=== PATIENT | female | born 1945 | race Caucasian/White ===

== ENCOUNTER 2018-04-03 21:44 | Observation (INO) | payer MEDICARE, BC ==
[2018-04-03] MEDS ORDERED: Sodium Chloride 0.9% 1,000 ML IV ONE (22:06)
[2018-04-03 22:38] LABS: CHLORIDE,CL 104 mmol/L (98-107); SODIUM,NA 138 mmol/L (136-145)
[2018-04-03] MEDS ORDERED: Ondansetron 4 MG/2 ML SDV IVPUSH ONE (22:44)
--- NOTE | 2018-04-03 23:15 | EDM.PDOC ---
ED HPI GENERAL MEDICAL PROBLEM - General Chief Complaint: General Stated Complaint: lightheadedness/vomiting Time Seen by Provider: 04/03/18 22:15 Source of Information: Reports: Patient History Limitations: Reports: No Limitations - History of Present Illness INITIAL COMMENTS - FREE TEXT/NARRATIVE: Patient comes to ER with complaint of nausea and vomiting. She relates that she had a stent removed this past Wednesday, 5 days ago. Anesthesia was required. She developed nausea and vomiting afterwards. Things felt better on Wednesday and but she had persistent lightheaded feeling that is made worse with standing as well as turning head. On Wednesday she started to have worsening nausea and redeveloped emesis. She has had multiple episodes of vomiting since then. Patient denies fever. No bowel changes. No cough/respiratory changes. No vision changes. No ear pain/runny nose/sore throat. No symptoms suggesting UTI. She was diagnosed with UTI prior to stent removal and received a course of Septra. She says she is sensitive to anesthesia and wonders if her symptoms are related to the recent procedure. Patient has had a somewhat unusual medical course since January when she was diagnosed with the kidney stone. Originally they told her that they should be able to go up and retrieve it. This failed and it was instead retrieved through an incision in her back. A stent was then placed which was to stay for approximately "2-3 weeks, sometimes more" based on her instruction sheet. No one contacted her for follow up plans. She figured that she must have required a longer time with the stent. After the two month salima had passed she contacted Urology. The person there said that she was supposed to have stent taken out in January. Patient says that the Urology department apparently completely forgot about her. They did immediately get her in to the clinic, but by then the stent had appeared to be frozen/calcified in place. She was told that she would have to be scheduled for a more advanced procedure under anesthesia to get the stent out. She was then told she would need bloodwork and a UA the week prior to stent removal. This she had done locally at the [facility] the Wednesday the week before the procedure was scheduled. She said that again she was not contacted back by the Urology department regarding what to do next. On Wednesday of that week she called them again and asked what was going on, as she had gone onto her online chart and noticed that there were elevated numbers of RBC and WBC in the specimen. On that Wednesday they started her on the . They following Wednesday is when they removed the stent. Patient makes it clear that she is quite tired of all of the recent issues and her patience is becoming shortened. She called the nurse line nayely regarding the nausea/vomiting and lightheadedness and was told to go the the ER for hydration. Dizziness feels better when she lays down. - Related Data Allergies Allergy/AdvReac Type Severity Reaction Status Date / Time amoxicillin trihydrate Allergy Unknown Nausea and Verified 04/03/18 22:07 [From Augmentin] diarrhea potassium clavulanate Allergy Unknown nausea and Verified 04/03/18 22:07 [From Augmentin] diarrhea Home Meds: Home Meds Apixaban [Eliquis] 5 mg PO BID 06/19/14 [History] Irbesartan/Hydrochlorothiazide [Avalide 150-12.5 MG] 1 tab PO DAILY 06/19/14 [ History] Naproxen Sodium [Aleve] 220 mg PO BID PRN 06/19/14 [History] atorvaSTATin [Lipitor] 10 mg PO BEDTIME 06/19/14 [History] Sotalol HCl [Betapace] 120 mg PO BID 04/03/18 [History] Past Medical History Cardiovascular History: Reports: Afib (had ablation procedure several years ago that successfully got her back into sinus rhythm. Cardiology still keeps her on Sotalol and Eliquis.), High Cholesterol, Hypertension Genitourinary History: Reports: Pyelonephritis, Other (See Below) Other Genitourinary History: with surgical stents and recent stent removal 5 days ago. Musculoskeletal History: Reports: Osteoarthritis (has had joint replacements.) Social & Family History - Family History Cardiac: Reports: CAD Neurological: Reports: CVA - Tobacco Use Smoking Status *Q: Never Smoker - Alcohol Use Alcohol Use History: No - Recreational Drug Use Recreational Drug Use: No Drug Use in Last 12 Months: No ED ROS GENERAL - Review of Systems Review Of Systems: See Below Constitutional: Reports: Decreased Appetite. Denies: Fever, Chills, Malaise, Weakness, Night Sweats, Diaphoresis HEENT: Reports: Vertigo. Denies: Ear Discharge, Ear Pain, Eye Pain, Rhinitis, Vision Change Respiratory: Reports: No Symptoms. Denies: Shortness of Breath, Wheezing, Pleuritic Chest Pain, Cough, Sputum, Hemoptysis Cardiovascular: Reports: Lightheadedness. Denies: Chest Pain, Palpitations, Syncope GI/Abdominal: Reports: Decreased Appetite, Nausea, Vomiting. Denies: Abdominal Pain, Black Stool, Bloody Stool, Constipation, Diarrhea, Difficulty Swallowing : Reports: No Symptoms. Denies: Dysuria, Flank Pain, Frequency, Hematuria Musculoskeletal: Reports: No Symptoms Skin: Reports: No Symptoms Neurological: Reports: Dizziness. Denies: Confusion, Headache, Numbness, Paresthesia, Syncope, Weakness, Change in Speech, Gait Disturbance Psychiatric: Reports: No Symptoms Hematologic/Lymphatic: Reports: No Symptoms ED EXAM, GENERAL - Physical Exam Exam: See Below Exam Limited By: No Limitations General Appearance: Alert, WD/WN, Other (intermittent nausea/emesis) Eye Exam: Bilateral Eye: EOMI, PERRL, Other (No nystagmus observed with head rotation) Ears: Normal External Exam, Normal Canal, Hearing Grossly Normal, Normal TMs Nose: Normal Inspection Throat/Mouth: Normal Inspection, Normal Lips, Normal Voice, No Airway Compromise Head: Atraumatic, Normocephalic Neck: Normal Inspection, Supple, Non-Tender, Full Range of Motion. No: Lymphadenopathy (L), Lymphadenopathy (R) Respiratory/Chest: No Respiratory Distress, Lungs Clear, Normal Breath Sounds, No Accessory Muscle Use, Chest Non-Tender Cardiovascular: Normal Peripheral Pulses, Regular Rate, Rhythm, No Edema, No Murmur Peripheral Pulses: 2+: Radial (L), Radial (R), Dorsalis Pedis (L), Dorsalis Pedis (R) GI/Abdominal: Normal Bowel Sounds, Soft, Non-Tender, No Distention (Female) Exam: Deferred Rectal (Female) Exam: Deferred Back Exam: No: CVA Tenderness (L), CVA Tenderness (R) Extremities: Normal Range of Motion, Non-Tender, No Pedal Edema, Slow Capillary Refill (slightly delayed) Neurological: Alert, Oriented, CN II-XII Intact, Normal Cognition, Normal Gait, No Motor/Sensory Deficits Psychiatric: Normal Affect, Normal Mood Skin Exam: Warm, Dry, Intact, Normal Color Course - Vital Signs Last Recorded V/S: Last Vital Signs Temp 36.8 C 04/03/18 21:46 Pulse 58 L 04/03/18 22:29 Resp 16 04/03/18 22:29 BP 159/73 H 04/03/18 22:29 Pulse Ox 95 04/03/18 22:29 - Orders/Labs/Meds Orders: Active Orders 24 hr Category Date Time Status Peripheral IV Care [RC] . DIRECTED Care 04/03/18 22:06 Active Sodium Chloride 0.9% [Normal Saline] 1,000 ml Med 04/03/18 22:06 Active IV .BOLUS Peripheral IV Insertion Adult [OM.PC] Routine Oth 04/03/18 22:06 Ordered Medication Orders Sodium Chloride (Normal Saline) 1,000 mls @ 999 mls/hr IV .BOLUS ONE Stop: 04/03/18 23:06 Last Admin: 04/03/18 22:20 Dose: 999 mls/hr Labs: Laboratory Tests 04/03/18 04/03/18 Range/Units 22:15 22:15 WBC 9.3 (4.0-10.2) K/uL RBC 4.29 (3.77-5.09) M/uL Hgb 12.9 (11.7-15.5) g/dL Hct 38.1 (34.0-46.0) % MCV 88.8 (84.0-98.0) fL MCH 30.1 (28.2-33.3) pg MCHC 33.9 (31.7-36.0) g/dL RDW 13.0 (11.2-14.1) % Plt Count 216 (150-350) K/uL Neut % (Auto) 79.2 (45.0-80.0) % Lymph % (Auto) 12.3 (10.0-50.0) % [place] % (Auto) 6.8 (2.0-14.0) % Eos % (Auto) 1.5 (0.0-5.0) % Baso % (Auto) 0.2 (0.0-2.0) % Neut # (Auto) 7.38 H (1.40-7.00) K/uL Lymph # (Auto) 1.15 (0.50-3.50) K/uL [place] # (Auto) 0.63 (0.00-1.00) K/uL Eos # (Auto) 0.14 (0.00-0.50) K/uL Baso # (Auto) 0.02 (0.00-0.20) K/uL Sodium 138 (136-145) mmol/L Potassium 3.9 (3.5-5.1) mmol/L Chloride 104 (98-107) mmol/L Carbon Dioxide 26.3 (21.0-32.0) mmol/L BUN 22 H (7-18) mg/dL Creatinine 0.82 (0.51-1.17) mg/dL Est Cr Clr Drug Dosing 61.19 mL/min Estimated GFR (MDRD) > 60 mL/min Glucose 127 H (74-106) mg/dL Calcium 9.3 (8.5-10.1) mg/dL Total Bilirubin 0.7 (0.2-1.0) mg/dL AST 21 (15-37) U/L ALT 27 (12-78) U/L Alkaline Phosphatase 98 (46-116) IU/L Total Protein 7.8 (6.4-8.2) g/dL Albumin 4.1 (3.4-5.0) g/dL Meds: Medications Generic Name Dose Route Start Last Admin Trade Name Freq PRN Reason Stop Dose Admin Sodium Chloride 1,000 mls @ 999 mls/hr 04/03/18 22:06 04/03/18 22:20 Normal Saline IV 04/03/18 23:06 999 mls/hr .BOLUS ONE Administration Discontinued Medications Generic Name Dose Route Start Last Admin Trade Name Freq PRN Reason Stop Dose Admin Ondansetron HCl 4 mg 04/03/18 22:44 04/03/18 22:47 Zofran IVPUSH 04/03/18 22:45 4 mg ONETIME ONE Administration - Re-Assessments/Exams Free Text/Narrative Re-Assessment/Exam: 04/03/18 23:30 CBC/Chem overall unremarkable. Patient has not yet been able to void and give us a urine specimen. Given patient's past history with nausea/emesis related to anesthesia, and the ability of anesthesia to hang around the patient's system for awhile after procedures, it is possible that this is linked with the medication. Symptoms did initially appear immediately after the stent removal procedure. However possible UTI must be also ruled out, particularly since she had recent infection. Viral etiology appears less likely. Patient has had no fevers, no headaches, no chest pain/sob. 1st degree block noted on cafeteria monitor. Plan at this time is to admit her to observation and continue fluids. Will try to get nausea under control. BP elevated in ER. Patient did take morning medications. Suspect due to discomfort and dry heaves. Departure - Departure Time of Disposition: 23:43 Disposition: Refer to Observation Condition: Good Clinical Impression: Dehydration Nausea & vomiting Qualifiers: Vomiting type: unspecified Vomiting Intractability: intractable Qualified Code( s): R11.2 - Nausea with vomiting, unspecified - Discharge Information Referrals: Maye Goncalves PA-C [Primary Care Provider] - - Problem List & Annotations (1) Nausea & vomiting SNOMED Code(s): 43548110 Code(s): R11.2 - NAUSEA WITH VOMITING, UNSPECIFIED Status: Acute Priority : High Onset Date: 03/22/18 Annotation/Comment:: Nausea/emesis that started 5 days ago after stent removal under anesthesia. Accompanied by dizziness and vertigo. No improvement after Zofran. Admitted for IV fluids and antiemetics. UA ordered. Qualifiers: Vomiting type: unspecified Vomiting Intractability: intractable Qualified Code(s): R11.2 - Nausea with vomiting, unspecified (2) Dehydration SNOMED Code(s): 16797848 Code(s): E86.0 - DEHYDRATION Status: Acute Priority: High Onset Date: ~ 03/26/18 Annotation/Comment:: as above (3) Dizziness, nonspecific SNOMED Code(s): 332624194, 288642715 Code(s): R42 - DIZZINESS AND GIDDINESS Status: Acute Priority: Medium Onset Date: 03/29/18 Annotation/Comment:: Present since patient received anesthesia. Worse with head rotation/movement. (4) Hypertension SNOMED Code(s): 48812645 Code(s): I10 - ESSENTIAL (PRIMARY) HYPERTENSION Status: Chronic Priority : Medium Annotation/Comment:: Will continue to monitor for trends. Qualifiers: Hypertension type: essential hypertension Qualified Code(s): I10 - Essential (primary) hypertension (5) Hyperlipidemia SNOMED Code(s): 49181134 Code(s): E78.5 - HYPERLIPIDEMIA, UNSPECIFIED Status: Chronic Priority: Low (6) History of radiofrequency ablation procedure for cardiac arrhythmia SNOMED Code(s): 251381744 Code(s): Z98.890 - OTHER SPECIFIED POSTPROCEDURAL STATES Status: Chronic Priority: Low Annotation/Comment:: History of Afib, converted to sinus after procedure. - Problem List Review Problem List Initiated/Reviewed/Updated: Yes - My Orders Last 24 Hours: My Active Orders 04/03/18 22:06 Peripheral IV Care [RC] . DIRECTED Sodium Chloride 0.9% [Normal Saline] 1,000 ml IV .BOLUS Peripheral IV Insertion Adult [OM.PC] Routine - Assessment/Plan Admission H&P: Please use this note as an admission H&P Last 24 Hours: My Active Orders 04/03/18 22:06 Peripheral IV Care [RC] . DIRECTED Sodium Chloride 0.9% [Normal Saline] 1,000 ml IV .BOLUS Peripheral IV Insertion Adult [OM.PC] Routine Assessment:: Nausea, emesis, dizziness s/p stent removal. Specific etiology unclear at this time. UA request pending to r/o UTI. Plan at this time is IV fluids and antiemetics.
[2018-04-03] MEDS ORDERED: Promethazine 25 MG/ML SDV IM ONE (23:51)
[2018-04-04] MEDS ORDERED: Sodium Chloride 0.9% 1,000 ML IV ONE (00:14)
[2018-04-04] MEDS ORDERED: Promethazine 25 MG/ML SDV IM PRN (00:17)
[2018-04-04] MEDS ORDERED: Prochlorperazine 10 MG/2 ML SDV IVPUSH PRN (00:19)
[2018-04-04] MEDS ORDERED: Meclizine 25 MG Tab PO ONE (00:20)
[2018-04-04] MEDS: Lactated Ringers 1,000 ML IV SCH ×3 (01:13→18:58)
[2018-04-04] MEDS ORDERED: Meclizine 25 MG Tab ONE (05:22)
[2018-04-04] MEDS: Apixaban 5 MG Tab PO SCH ×2 (07:44→17:12)
--- NOTE | 2018-04-04 08:43 | PCM.PN ---
- General Info Date of Service: 04/04/18 Admission Dx/Problem (Free Text): 1. Nausea/emesis 2. Dehydration with secondary dizziness Functional Status: Reports: Pain Controlled, Tolerating Diet, Ambulating, Urinating. Denies: New Symptoms, Incentive Spirometry Pain Score: 0 - Review of Systems General: Reports: Other (Mild persistent occasional nausea and dizziness). Denies: Fever, Weakness, Fatigue, Malaise, Chills, Night Sweats, Appetite HEENT: Reports: Glasses. Denies: Dysphasia, Ear Pain, Eye Pain, Headaches, Post Nasal Drip, Sinus Congestion, Sore Throat, Rhinitis, Visual Changes Pulmonary: Reports: No Symptoms. Denies: Shortness of Breath, Pleuritic Chest Pain, Cough, Sputum, Wheezing Cardiovascular: Reports: Lightheadedness. Denies: Chest Pain, Palpitations, Dyspnea on Exertion, Orthopnea, Edema Gastrointestinal: Reports: No Symptoms, Abdominal Pain, Nausea, Other (Normal bowel movement yesterday by patient history). Denies: Constipation, Decreased Appetite, Diarrhea, Difficulty Swallowing, Flatus, Hematochezia, Melena, Vomiting Genitourinary: Reports: No Symptoms. Denies: Dysuria, Frequency, Burning, Pain , Urgency, Incontinence, Hematuria, Retention, Flank Pain Musculoskeletal: Reports: No Symptoms. Denies: Neck Pain, Shoulder Pain, Arm Pain, Back Pain, Leg Pain Skin: Reports: No Symptoms. Denies: Pallor, Diaphoresis, Bruising, Pruritis, Rash Neurological: Reports: Dizziness. Denies: Headache, Numbness, Paresthesia, Pre- Existing Deficit, Seizure, Syncope, Tingling, Tremors, Trouble Speaking, Difficulty Walking, Weakness Psychiatric: Reports: No Symptoms. Denies: Confusion, Depression, Anxiety, Agitation, Hallucinations - Patient Data Vitals - Most Recent: Last Vital Signs Temp 36.6 C 04/04/18 07:45 Pulse 79 04/04/18 07:45 Resp 18 04/04/18 07:45 BP 141/73 H 04/04/18 07:45 Pulse Ox 99 04/04/18 07:45 Vital Signs - 24 hr 04/03/18 04/03/18 04/04/18 21:46 22:29 00:09 Temperature [ 36.8 C 36.6 C Temporal] Pulse, 63 58 L 62 Peripheral [ Pulse Oximetry] Respiratory 16 16 16 Rate Blood Pressure [Left Upper Arm ] Blood Pressure 191/88 H 159/73 H 156/71 H [Right Upper Arm] O2 Sat by Pulse 99 95 99 Oximetry 04/04/18 04/04/18 05:30 07:45 Temperature [ 36.6 C 36.6 C Temporal] Pulse, 67 79 Peripheral [ Pulse Oximetry] Respiratory 16 18 Rate Blood Pressure 146/76 H 141/73 H [Left Upper Arm ] Blood Pressure [Right Upper Arm] O2 Sat by Pulse 98 99 Oximetry Weight - Most Recent: 91.354 kg I&O - Last 24 Hours: Intake & Output 04/03/18 04/04/18 04/04/18 22:59 06:59 14:59 Intake Total 2650 350 Output Total 300 Balance 2350 350 Imaging Impressions - Last 24 Hours: None Lab Results Last 24 Hours: Laboratory Results - last 24 hr 04/03/18 04/03/18 04/04/18 Range/Units 22:15 22:15 00:05 WBC 9.3 (4.0-10.2) K/uL RBC 4.29 (3.77-5.09) M/uL Hgb 12.9 (11.7-15.5) g/dL Hct 38.1 (34.0-46.0) % MCV 88.8 (84.0-98.0) fL MCH 30.1 (28.2-33.3) pg MCHC 33.9 (31.7-36.0) g/dL RDW 13.0 (11.2-14.1) % Plt Count 216 (150-350) K/uL Neut % (Auto) 79.2 (45.0-80.0) % Lymph % (Auto) 12.3 (10.0-50.0) % [place] % (Auto) 6.8 (2.0-14.0) % Eos % (Auto) 1.5 (0.0-5.0) % Baso % (Auto) 0.2 (0.0-2.0) % Neut # (Auto) 7.38 H (1.40-7.00) K/uL Lymph # (Auto) 1.15 (0.50-3.50) K/uL Morris # (Auto) 0.63 (0.00-1.00) K/uL Eos # (Auto) 0.14 (0.00-0.50) K/uL Baso # (Auto) 0.02 (0.00-0.20) K/uL Sodium 138 (136-145) mmol/L Potassium 3.9 (3.5-5.1) mmol/L Chloride 104 (98-107) mmol/L Carbon Dioxide 26.3 (21.0-32.0) mmol/L BUN 22 H (7-18) mg/dL Creatinine 0.82 (0.51-1.17) mg/dL Est Cr Clr Drug Dosing 61.19 mL/min Estimated GFR (MDRD) > 60 mL/min Glucose 127 H (74-106) mg/dL Calcium 9.3 (8.5-10.1) mg/dL Total Bilirubin 0.7 (0.2-1.0) mg/dL AST 21 (15-37) U/L ALT 27 (12-78) U/L Alkaline Phosphatase 98 (46-116) IU/L Total Protein 7.8 (6.4-8.2) g/dL Albumin 4.1 (3.4-5.0) g/dL Urine Color Yellow Urine Appearance Clear Urine pH 6.0 (5.0-9.0) Ur Specific Newborn 1.020 (1.005-1.030) Urine Protein Negative (NEGATIVE) mg/dL Urine Glucose (UA) Negative (NEGATIVE) mg/dL Urine Ketones 15 H (NEGATIVE) mg/dL Urine Occult Blood Negative (NEGATIVE) Urine Nitrite Negative (NEGATIVE) Urine Bilirubin Negative (NEGATIVE) Urine Urobilinogen 0.2 (0.2-1.0) E.U./dL Ur Leukocyte Esterase Negative (NEGATIVE) Charles Results Last 24 Hours: None Med Orders - Current: Current Medications Apixaban (Eliquis) 5 mg PO BID [facility] Last Admin: 04/04/18 07:44 Dose: 5 mg Atorvastatin Calcium (Lipitor) 10 mg PO BEDTIME [facility] Lactated Ringer's (Ringers, Lactated) 1,000 mls @ 125 mls/hr IV ASDIRECTED [facility] Last Admin: 04/04/18 01:13 Dose: 125 mls/hr Non-Formulary Medication (Irbesartan/Hydrochlorothiazide [Avalide 150-12.5 Mg]) 1 tab PO DAILY [facility] Non-Formulary Medication (Sotalol Hcl [Betapace]) 120 mg PO BID [facility] Prochlorperazine Edisylate (Compazine) 5 mg IVPUSH ONETIME PRN PRN Reason: Nausea Promethazine HCl (Phenergan) 25 mg IM Q6H PRN PRN Reason: Nausea Discontinued Medications Sodium Chloride (Normal Saline) 1,000 mls @ 999 mls/hr IV .BOLUS ONE Stop: 04/03/18 23:06 Last Admin: 04/03/18 22:20 Dose: 999 mls/hr Sodium Chloride (Normal Saline) 1,000 mls @ 999 mls/hr IV .BOLUS ONE Stop: 04/04/18 01:14 Last Admin: 04/04/18 00:15 Dose: 999 mls/hr Meclizine HCl (Antivert) 25 mg PO ONETIME ONE Stop: 04/04/18 00:21 Last Admin: 04/04/18 05:30 Dose: 25 mg Meclizine HCl (Antivert) Confirm Administered Dose 25 mg .ROUTE .STK-MED ONE Stop: 04/04/18 05:23 Last Admin: 04/04/18 05:31 Dose: Not Given Ondansetron HCl (Zofran) 4 mg IVPUSH ONETIME ONE Stop: 04/03/18 22:45 Last Admin: 04/03/18 22:47 Dose: 4 mg Promethazine HCl (Phenergan) 25 mg IM ONETIME ONE Stop: 04/03/18 23:52 Last Admin: 04/04/18 00:12 Dose: 25 mg - Exam Quality Assessment: DVT Prophylaxis. No: Supplemental Oxygen, Central Line/PICC , Urine Catheter, Skin Breakdown, Restraints General: Alert, Oriented, Cooperative, No Acute Distress HEENT: Pupils Equal, Pupils Reactive, EOMI, Mucous Membr. Moist/[place] Neck: Supple, Trachea Midline, No JVD, No Thyromegaly. No: Lymphadenopathy Lungs: Clear to Auscultation, Normal Respiratory Effort. No: Rub Cardiovascular: Regular Rate, Regular Rhythm, No Murmurs. No: Gallops, Rubs GI/Abdominal Exam: Normal Bowel Sounds, Soft, Non-Tender, No Organomegaly, No Distention, No Abnormal Bruit, No Mass, Other (Obese). No: Guarding (Female) Exam: Deferred Back Exam: Normal Inspection, Full Range of Motion. No: CVA Tenderness (L), CVA Tenderness (R), Muscle Spasm Extremities: Normal Inspection, Normal Range of Motion, Non-Tender, No Pedal Edema, Normal Capillary Refill. No: Vivien's Sign Peripheral Pulses: 2+: Radial (L), Radial (R), Dorsalis Pedis (L), Dorsalis Pedis (R) Skin: Warm, Dry, Intact. No: Ecchymosis Neurological: No New Focal Deficit, Other (No clinical orthostasis) Psy/Mental Status: Alert, Normal Affect, Normal Mood. No: Agitated, Hallucinations, Withdrawal Symptoms - Problem List & Annotations (1) Nausea & vomiting SNOMED Code(s): 65443559 Code(s): R11.2 - NAUSEA WITH VOMITING, UNSPECIFIED Status: Acute Priority : High Current Visit: Yes Onset Date: 03/22/18 Qualifiers: Vomiting type: unspecified Vomiting Intractability: intractable Qualified Code(s): R11.2 - Nausea with vomiting, unspecified Annotation/Comment:: Persistent mild nausea requiring medications in the hospital. No emesis since admission. Normal bowel movement yesterday by her history. Patient is tolerating clear liquid diet with slow advancement as tolerated per her request. Nausea/emesis started 5 days ago after stent removal under anesthesia. Accompanied by dizziness and vertigo. No improvement after Zofran initially in the emergency room. Patient was admitted for IV fluids and further antiemetics through the emergency room by [facility] physician. UA is normal. Repeat blood work in the a.m. (2) Dehydration SNOMED Code(s): 25543209 Code(s): E86.0 - DEHYDRATION Status: Acute Priority: High Current Visit : Yes Onset Date: ~03/26/18 Annotation/Comment:: as above. Dehydration since fully resolved this morning, although continue IV fluids secondary to persistent dizziness. Advance diet as tolerated. (3) Atrial fibrillation SNOMED Code(s): 54920074 Code(s): I48.91 - UNSPECIFIED ATRIAL FIBRILLATION Status: Chronic Priority: Medium Current Visit: Yes Qualifiers: Atrial fibrillation type: chronic Qualified Code(s): I48.2 - Chronic atrial fibrillation Annotation/Comment:: No successful previous cardiac ablation with current Eliquis and sotalol therapy. No recent chest pain or anginal complaints. (4) Dizziness, nonspecific SNOMED Code(s): 144079947, 549316637 Code(s): R42 - DIZZINESS AND GIDDINESS Status: Acute Priority: Medium Current Visit: Yes Onset Date: 03/29/18 Annotation/Comment:: Persistent nonspecific dizziness with possible vertigo component. No nystagmus present. Symptoms somewhat improved with resolution of her dehydration with IV fluids. Continue IV fluids for now with diet to be advanced as above. (5) Hyperlipidemia SNOMED Code(s): 51082727 Code(s): E78.5 - HYPERLIPIDEMIA, UNSPECIFIED Status: Chronic Priority: Medium Current Visit: Yes Qualifiers: Hyperlipidemia type: unspecified Qualified Code(s): E78.5 - Hyperlipidemia , unspecified Annotation/Comment:: Currently under therapy. Continue weight loss and exercise in moderation advisable (6) Hypertension SNOMED Code(s): 37836668 Code(s): I10 - ESSENTIAL (PRIMARY) HYPERTENSION Status: Chronic Priority : Medium Current Visit: Yes Qualifiers: Hypertension type: essential hypertension Qualified Code(s): I10 - Essential (primary) hypertension Annotation/Comment:: Blood pressure is much improved since admission, although still occasionally mildly elevated. Continue to observe closely - Problem List Review Problem List Initiated/Reviewed/Updated: Yes - Assessment Assessment:: As above - Plan Plan:: As above. Extensive precautions were given to the patient, who is in agreement with the treatment plan. Likely discharge to home tomorrow.
[2018-04-04] MEDS ORDERED: atorvaSTATin 10 MG Tab PO SCH (20:00)
[2018-04-05] MEDS: Lactated Ringers 1,000 ML IV SCH (05:00)
[2018-04-05 07:34] LABS: CHLORIDE,CL 106 mmol/L (98-107); SODIUM,NA 141 mmol/L (136-145)
[2018-04-05] MEDS: Apixaban 5 MG Tab PO SCH (07:59)
--- NOTE | 2018-04-05 08:52 | PCM.DCSUM1 ---
Discharge Summary - Hospital Course HPI Initial Comments: See emergency room note/admission H&P Brief History: See emergency room note/admission H&P - Discharge Data Discharge Date: 04/05/18 Discharge Disposition: Home, Self-Care 01 Condition: Good - Discharge Diagnosis/Problem(s) (1) Nausea & vomiting SNOMED Code(s): 79292625 ICD Code: R11.2 - NAUSEA WITH VOMITING, UNSPECIFIED Status: Acute Priority: High Current Visit: Yes Onset Date: 03/22/18 Problem Details: Completely resolved symptoms at this time with no abdominal pain, nausea, etc. with the patient tolerating her advance diet well during the day yesterday. He did not have a bowel movement yesterday. Persistent mild nausea yesterday requiring medications in the hospital. No emesis since admission. Normal bowel movement 2 days ago by her history with no significant constipation. Nausea/ emesis started 5 days ago after stent removal under anesthesia with additional history of dizziness and vertigo, which is resolved at this time.. No improvement after Zofran initially in the emergency room. Patient was admitted for IV fluids and further antiemetics through the emergency room by [facility] physician. UA is normal with no colic, hematuria, or other gross hematuria. Qualifiers: Vomiting type: unspecified Vomiting Intractability: intractable Qualified Code(s): R11.2 - Nausea with vomiting, unspecified (2) Dehydration SNOMED Code(s): 20985630 ICD Code: E86.0 - DEHYDRATION Status: Acute Priority: High Current Visit: Yes Onset Date: ~03/26/18 Problem Details: as above. Dehydration is fully resolved this morning, with continuation of IV fluids throughout this hospitalization secondary to persistent dizziness. (3) Atrial fibrillation SNOMED Code(s): 96255309 ICD Code: I48.91 - UNSPECIFIED ATRIAL FIBRILLATION Status: Chronic Priority: Medium Current Visit: Yes Problem Details: Note successful previous cardiac ablation with current Eliquis and sotalol therapy. No recent chest pain or anginal complaints. INR and PTT conducted today with results as above. Qualifiers: Atrial fibrillation type: chronic Qualified Code(s): I48.2 - Chronic atrial fibrillation (4) Dizziness, nonspecific SNOMED Code(s): 821931347, [id number] ICD Code: R42 - DIZZINESS AND GIDDINESS Status: Acute Priority: Medium Current Visit: Yes Onset Date: 03/29/18 Problem Details: As above. No nystagmus or vertigo present today. (5) Hyperlipidemia SNOMED Code(s): 20097347 ICD Code: E78.5 - HYPERLIPIDEMIA, UNSPECIFIED Status: Chronic Priority: Medium Current Visit: Yes Problem Details: Currently under therapy. Continue weight loss and exercise in moderation advisable Qualifiers: Hyperlipidemia type: unspecified Qualified Code(s): E78.5 - Hyperlipidemia , unspecified (6) Hypertension SNOMED Code(s): 13332116 ICD Code: I10 - ESSENTIAL (PRIMARY) HYPERTENSION Status: Chronic Priority : Medium Current Visit: Yes Problem Details: Blood pressure is somewhat elevated this morning, however improved at time of discharge and relatively stable during this hospitalization. Continue to observe closely Qualifiers: Hypertension type: essential hypertension Qualified Code(s): I10 - Essential (primary) hypertension (7) Anemia SNOMED Code(s): 858877191 ICD Code: D64.9 - ANEMIA, UNSPECIFIED Status: Acute Priority: Medium Current Visit: Yes Onset Date: 04/05/18 Problem Details: Somewhat progressive anemia during this hospitalization possibly secondary to rehydration effect. By patient history her colonoscopy is due shortly. No evidence of acute GI bleed. Note current Eliquis therapy and previous Aleve therapy prior to admission. Patient was reminded to strictly avoid NSAIDs while on Eliquis as per discharge instructions with Aleve to be changed to when necessary Tylenol. Continue to observe closely by her regular provider as per discharge instructions with consideration of possible iron studies, EGD, colonoscopy, etc. depending on her clinical course. Qualifiers: Anemia type: unspecified type Qualified Code(s): D64.9 - Anemia, unspecified (8) Hypoalbuminemia SNOMED Code(s): 001045352 ICD Code: E88.09 - OTH DISORDERS OF PLASMA-PROTEIN METABOLISM, NEC Status: Acute Priority: Medium Current Visit: Yes Onset Date: 04/05/18 Problem Details: Continue to observe closely by her regular provider. Initiate high- protein Glucerna supplements twice a day as snacks. (9) Urolithiasis SNOMED Code(s): 07046184, 766332609 ICD Code: N20.9 - URINARY CALCULUS, UNSPECIFIED Status: Chronic Priority : Medium Current Visit: Yes Problem Details: Note recent stent removal as per admission history and physical. No current colic, UTI symptoms, etc. with negative UA during this hospitalization. No true allergic reaction to anesthesia , however possible GI intolerance. She will inform her regular providers concerning this hospitalization and that reaction, although this may be of viral etiology. Qualifiers: Urinary calculus location: ureter Qualified Code(s): N20.1 - Calculus of ureter (10) Leukopenia SNOMED Code(s): 05208880, 698523504 ICD Code: D72.819 - DECREASED WHITE BLOOD CELL COUNT, UNSPECIFIED Status: Acute Priority: Medium Current Visit: Yes Onset Date: 04/05/18 Problem Details: Newly diagnosed but nonsymptomatic. Possibly secondary to viral GE. CBC to be repeated at follow up. Qualifiers: Leukopenia type: neutropenia - Patient Summary/Data Operative Procedure(s) Performed: None Complications: None Consults: None Labs Pending at D/C: None Recommended Follow-up Testing/Procedures: As per discharge instructions Planned Operative Procedure(s) after DC: As per discharge instructions Hospital Course: Patient was admitted to observation status for IV hydration and control of her refractory nausea/emesis. Completely resolved symptoms at time of discharge with overall good results with medical therapy during this hospitalization. No evidence of UTI symptoms, colic, etc. as above. - Patient Instructions Diet: Heart Healthy Diet Diet, Other: Diverticulosis, high protein Activity: As Tolerated Driving: May Drive Today Showering/Bathing: May Shower Notify Provider of: Fever, Increased Pain, Nausea and/or Vomiting Other/Special Instructions: 1. Follow up with your regular provider in one week for reevaluation and recommended repeat CBC and basic metabolic panel. 2. Discuss this hospitalization and possible GI intolerance to anesthesia with your regular provider at that time. 3. Discuss with your regular provider possible further GI workup, including EGD, colonoscopy, iron studies, etc., if significant anemia persists at follow-up. 4. Avoidance of all ibuprofen, Aleve , and other NSAIDs as discussed secondary to your current Eliquis therapy. 5. High-protein Glucerna supplements twice a day as snacks with consideration of repeat comprehensive metabolic panel in one month. 6. Immediately after this visit verify that your cellular telephone's voicemail has been activated and is empty. Also verify that your home telephone's answering machine is operating properly and has space to receive messages. Note that it is sometimes necessary for us to be able to contact you at a later date to discuss your medical care. - Discharge Plan Prescriptions/Med Rec: Acetaminophen [Tylenol] 325 mg PO Q4HR PRN #100 tablet PRN Reason: Pain/Fever Home Medications: Home Meds Apixaban [Eliquis] 5 mg PO BID 06/19/14 [History] Irbesartan/Hydrochlorothiazide [Avalide 150-12.5 MG] 1 tab PO DAILY 06/19/14 [ History] atorvaSTATin [Lipitor] 10 mg PO BEDTIME 06/19/14 [History] Sotalol HCl [Betapace] 120 mg PO BID 04/03/18 [History] Acetaminophen [Tylenol] 325 mg PO Q4HR PRN #100 tablet 04/05/18 [Rx] Patient Handouts: Ondansetron injection, Promethazine injection, Nausea and Vomiting, Adult, [id number], Dehydration, Adult, [id number] Forms: ED Department Discharge Referrals: Maye Goncalves PA-C [Primary Care Provider] - - Discharge Summary/Plan Comment DC Time >30 min.: Yes (Coordination of care ) Discharge Summary/Plan Comment: As above. Extensive precautions were given to the patient, who is in agreement with the treatment plan. See Patient Instructions for further treatment and plan. - General Info Date of Service: 04/05/18 Admission Dx/Problem (Free Text: 1. Nausea/emesis 2. Dehydration with secondary dizziness Functional Status: Reports: Pain Controlled, Tolerating Diet, Ambulating, Urinating, New Symptoms. Denies: Incentive Spirometry Numeric/FACES Score: 0 - Review of Systems General: Reports: No Symptoms. Denies: Fever, Weakness, Fatigue, Malaise, Chills, Night Sweats, Appetite (Appetite good) HEENT: Reports: Glasses. Denies: Dysphasia, Ear Pain, Eye Pain, Headaches, Post Nasal Drip, Sinus Congestion, Sore Throat, Rhinitis, Visual Changes Pulmonary: Reports: No Symptoms. Denies: Shortness of Breath, Pleuritic Chest Pain, Cough, Sputum, Wheezing Cardiovascular: Reports: No Symptoms. Denies: Chest Pain, Palpitations, Dyspnea on Exertion, Orthopnea, PND, Edema, Lightheadedness Gastrointestinal: Reports: No Symptoms. Denies: Abdominal Pain, Constipation, Decreased Appetite, Diarrhea, Difficulty Swallowing, Flatus, Hematochezia, Melena, Nausea, Vomiting Genitourinary: Reports: No Symptoms, Incontinence. Denies: Dysuria, Frequency, Burning, Pain, Urgency, Hematuria, Retention, Flank Pain Musculoskeletal: Reports: No Symptoms. Denies: Neck Pain, Shoulder Pain, Arm Pain, Back Pain, Leg Pain Skin: Reports: No Symptoms. Denies: Jaundice, Pallor, Diaphoresis, Dryness, Bruising, Rash Neurological: Reports: No Symptoms. Denies: Confusion, Dizziness, Headache, Numbness, Paresthesia, Syncope, Tingling, Weakness Psychiatric: Reports: No Symptoms. Denies: Confusion, Depression, Agitation, Hallucinations - Patient Data Vitals - Most Recent: Last Vital Signs Temp 36.7 C 04/05/18 07:13 Pulse 62 04/05/18 07:13 Resp 16 04/05/18 07:13 BP 161/86 H 04/05/18 07:13 Pulse Ox 98 04/05/18 07:13 Vital Signs - 24 hr 04/04/18 04/04/18 04/04/18 12:00 18:00 23:41 Temperature [ 35.8 C 36.8 C 36.4 C Temporal] Pulse, 67 65 58 L Peripheral [ Pulse Oximetry] Respiratory 19 16 16 Rate Blood Pressure 135/70 123/65 133/73 [Left Upper Arm ] O2 Sat by Pulse 97 98 95 Oximetry 04/04/18 04/05/18 04/05/18 23:43 07:13 08:00 Temperature [ 36.7 C Temporal] Pulse, 62 Peripheral [ Pulse Oximetry] Respiratory 16 Rate Blood Pressure 161/86 H 142/87 H [Left Upper Arm ] O2 Sat by Pulse 95 98 Oximetry Weight - Most Recent: 91.354 kg I&O - Last 24 hours: Intake & Output 04/04/18 04/05/18 04/05/18 22:59 06:59 14:59 Intake Total 1240 1110 Output Total 500 850 Balance 740 260 Imaging Impressions - Last 24 hrs: None Lab Results - Last 24 hrs: Laboratory Results - last 24 hr 04/04/18 04/05/18 04/05/18 Range/Units 00:05 07:09 07:09 WBC 3.7 L (4.0-10.2) K/uL RBC 3.63 L (3.77-5.09) M/uL Hgb 10.9 L D (11.7-15.5) g/dL Hct 33.2 L (34.0-46.0) % MCV 91.5 (84.0-98.0) fL MCH 30.0 (28.2-33.3) pg MCHC 32.8 (31.7-36.0) g/dL RDW 13.1 (11.2-14.1) % Plt Count 175 (150-350) K/uL Neut % (Auto) 36.6 L (45.0-80.0) % Lymph % (Auto) 46.2 (10.0-50.0) % [place] % (Auto) 12.6 (2.0-14.0) % Eos % (Auto) 4.1 (0.0-5.0) % Baso % (Auto) 0.5 (0.0-2.0) % Neut # (Auto) 1.34 L (1.40-7.00) K/uL Lymph # (Auto) 1.69 (0.50-3.50) K/uL [place] # (Auto) 0.46 (0.00-1.00) K/uL Eos # (Auto) 0.15 (0.00-0.50) K/uL Baso # (Auto) 0.02 (0.00-0.20) K/uL PT 11.2 (9.8-11.7) SEC INR 1.0 APTT 26.5 (22.1-29.8) SEC Sodium (136-145) mmol/L Potassium (3.5-5.1) mmol/L Chloride (98-107) mmol/L Carbon Dioxide (21.0-32.0) mmol/L BUN (7-18) mg/dL Creatinine (0.51-1.17) mg/dL Est Cr Clr Drug Dosing mL/min Estimated GFR (MDRD) mL/min Glucose (74-106) mg/dL Calcium (8.5-10.1) mg/dL Total Bilirubin (0.2-1.0) mg/dL AST (15-37) U/L ALT (12-78) U/L Alkaline Phosphatase (46-116) IU/L Total Protein (6.4-8.2) g/dL Albumin (3.4-5.0) g/dL Amylase (25-115) U/L Lipase (73-393) U/L Specimen Type Urinblad Urine RBC 0-5 /HPF Urine WBC 0-5 /HPF Ur Epithelial Cells Not seen /LPF Urine Bacteria Not seen (NONE TO FEW) /HPF 04/05/18 Range/Units 07:09 WBC (4.0-10.2) K/uL RBC (3.77-5.09) M/uL Hgb (11.7-15.5) g/dL Hct (34.0-46.0) % MCV (84.0-98.0) fL MCH (28.2-33.3) pg MCHC (31.7-36.0) g/dL RDW (11.2-14.1) % Plt Count (150-350) K/uL Neut % (Auto) (45.0-80.0) % Lymph % (Auto) (10.0-50.0) % [place] % (Auto) (2.0-14.0) % Eos % (Auto) (0.0-5.0) % Baso % (Auto) (0.0-2.0) % Neut # (Auto) (1.40-7.00) K/uL Lymph # (Auto) (0.50-3.50) K/uL [place] # (Auto) (0.00-1.00) K/uL Eos # (Auto) (0.00-0.50) K/uL Baso # (Auto) (0.00-0.20) K/uL PT (9.8-11.7) SEC INR APTT (22.1-29.8) SEC Sodium 141 (136-145) mmol/L Potassium 4.0 (3.5-5.1) mmol/L Chloride 106 (98-107) mmol/L Carbon Dioxide 27.7 (21.0-32.0) mmol/L BUN 15 (7-18) mg/dL Creatinine 0.78 (0.51-1.17) mg/dL Est Cr Clr Drug Dosing 64.16 mL/min Estimated GFR (MDRD) > 60 mL/min Glucose 94 (74-106) mg/dL Calcium 8.9 (8.5-10.1) mg/dL Total Bilirubin 0.5 (0.2-1.0) mg/dL AST 18 (15-37) U/L ALT 22 (12-78) U/L Alkaline Phosphatase 81 (46-116) IU/L Total Protein 6.3 L (6.4-8.2) g/dL Albumin 3.2 L (3.4-5.0) g/dL Amylase 33 (25-115) U/L Lipase 133 (73-393) U/L Specimen Type Urine RBC /HPF Urine WBC /HPF Ur Epithelial Cells /LPF Urine Bacteria (NONE TO FEW) /HPF Laboratory Tests 04/03/18 04/03/18 04/04/18 Range/Units 22:15 22:15 00:05 WBC 9.3 (4.0-10.2) K/uL RBC 4.29 (3.77-5.09) M/uL Hgb 12.9 (11.7-15.5) g/dL Hct 38.1 (34.0-46.0) % MCV 88.8 (84.0-98.0) fL MCH 30.1 (28.2-33.3) pg MCHC 33.9 (31.7-36.0) g/dL RDW 13.0 (11.2-14.1) % Plt Count 216 (150-350) K/uL Neut % (Auto) 79.2 (45.0-80.0) % Lymph % (Auto) 12.3 (10.0-50.0) % [place] % (Auto) 6.8 (2.0-14.0) % Eos % (Auto) 1.5 (0.0-5.0) % Baso % (Auto) 0.2 (0.0-2.0) % Neut # (Auto) 7.38 H (1.40-7.00) K/uL Lymph # (Auto) 1.15 (0.50-3.50) K/uL [place] # (Auto) 0.63 (0.00-1.00) K/uL Eos # (Auto) 0.14 (0.00-0.50) K/uL Baso # (Auto) 0.02 (0.00-0.20) K/uL PT (9.8-11.7) SEC INR APTT (22.1-29.8) SEC Sodium 138 (136-145) mmol/L Potassium 3.9 (3.5-5.1) mmol/L Chloride 104 (98-107) mmol/L Carbon Dioxide 26.3 (21.0-32.0) mmol/L BUN 22 H (7-18) mg/dL Creatinine 0.82 (0.51-1.17) mg/dL Est Cr Clr Drug Dosing 61.19 mL/min Estimated GFR (MDRD) > 60 mL/min Glucose 127 H (74-106) mg/dL Calcium 9.3 (8.5-10.1) mg/dL Total Bilirubin 0.7 (0.2-1.0) mg/dL AST 21 (15-37) U/L ALT 27 (12-78) U/L Alkaline Phosphatase 98 (46-116) IU/L Total Protein 7.8 (6.4-8.2) g/dL Albumin 4.1 (3.4-5.0) g/dL Amylase (25-115) U/L Lipase (73-393) U/L Specimen Type Urinblad Urine Color Yellow Urine Appearance Clear Urine pH 6.0 (5.0-9.0) Ur Specific [place] 1.020 (1.005-1.030) Urine Protein Negative (NEGATIVE) mg/dL Urine Glucose (UA) Negative (NEGATIVE) mg/dL Urine Ketones 15 H (NEGATIVE) mg/dL Urine Occult Blood Negative (NEGATIVE) Urine Nitrite Negative (NEGATIVE) Urine Bilirubin Negative (NEGATIVE) Urine Urobilinogen 0.2 (0.2-1.0) E.U./dL Ur Leukocyte Esterase Negative (NEGATIVE) Urine RBC 0-5 /HPF Urine WBC 0-5 /HPF Ur Epithelial Cells Not seen /LPF Urine Bacteria Not seen (NONE TO FEW) /HPF 04/05/18 04/05/18 04/05/18 Range/Units 07:09 07:09 07:09 WBC 3.7 L (4.0-10.2) K/uL RBC 3.63 L (3.77-5.09) M/uL Hgb 10.9 L D (11.7-15.5) g/dL Hct 33.2 L (34.0-46.0) % MCV 91.5 (84.0-98.0) fL MCH 30.0 (28.2-33.3) pg MCHC 32.8 (31.7-36.0) g/dL RDW 13.1 (11.2-14.1) % Plt Count 175 (150-350) K/uL Neut % (Auto) 36.6 L (45.0-80.0) % Lymph % (Auto) 46.2 (10.0-50.0) % [place] % (Auto) 12.6 (2.0-14.0) % Eos % (Auto) 4.1 (0.0-5.0) % Baso % (Auto) 0.5 (0.0-2.0) % Neut # (Auto) 1.34 L (1.40-7.00) K/uL Lymph # (Auto) 1.69 (0.50-3.50) K/uL [place] # (Auto) 0.46 (0.00-1.00) K/uL Eos # (Auto) 0.15 (0.00-0.50) K/uL Baso # (Auto) 0.02 (0.00-0.20) K/uL PT 11.2 (9.8-11.7) SEC INR 1.0 APTT 26.5 (22.1-29.8) SEC Sodium 141 (136-145) mmol/L Potassium 4.0 (3.5-5.1) mmol/L Chloride 106 (98-107) mmol/L Carbon Dioxide 27.7 (21.0-32.0) mmol/L BUN 15 (7-18) mg/dL Creatinine 0.78 (0.51-1.17) mg/dL Est Cr Clr Drug Dosing 64.16 mL/min Estimated GFR (MDRD) > 60 mL/min Glucose 94 (74-106) mg/dL Calcium 8.9 (8.5-10.1) mg/dL Total Bilirubin 0.5 (0.2-1.0) mg/dL AST 18 (15-37) U/L ALT 22 (12-78) U/L Alkaline Phosphatase 81 (46-116) IU/L Total Protein 6.3 L (6.4-8.2) g/dL Albumin 3.2 L (3.4-5.0) g/dL Amylase 33 (25-115) U/L Lipase 133 (73-393) U/L Specimen Type Urine Color Urine Appearance Urine pH (5.0-9.0) Ur Specific [place] (1.005-1.030) Urine Protein (NEGATIVE) mg/dL Urine Glucose (UA) (NEGATIVE) mg/dL Urine Ketones (NEGATIVE) mg/dL Urine Occult Blood (NEGATIVE) Urine Nitrite (NEGATIVE) Urine Bilirubin (NEGATIVE) Urine Urobilinogen (0.2-1.0) E.U./dL Ur Leukocyte Esterase (NEGATIVE) Urine RBC /HPF Urine WBC /HPF Ur Epithelial Cells /LPF Urine Bacteria (NONE TO FEW) /HPF DANIA Results - Last 24 hrs: None Med Orders - Current: Current Medications Apixaban (Eliquis) 5 mg PO BID [facility] Last Admin: 04/05/18 07:59 Dose: 5 mg Atorvastatin Calcium (Lipitor) 10 mg PO BEDTIME [facility] Last Admin: 04/04/18 19:59 Dose: 10 mg Lactated Ringer's (Ringers, Lactated) 1,000 mls @ 100 mls/hr IV ASDIRECTED [facility] Last Admin: 04/05/18 05:00 Dose: 125 mls/hr (Irbesartan/Hydrochlorothiazide [Avalide 150-12.5 Mg ] Patients Own 1 tab PO DAILY [facility] Last Admin: 04/05/18 07:59 Dose: 1 tab (Sotalol Hcl [ Betapace] 120 Mg) Patients Own 120 mg PO BID [facility] Last Admin: 04/05/18 07:59 Dose: 120 mg Prochlorperazine Edisylate (Compazine) 5 mg IVPUSH ONETIME PRN PRN Reason: Nausea Promethazine HCl (Phenergan) 25 mg IM Q6H PRN PRN Reason: Nausea Discontinued Medications Sodium Chloride (Normal Saline) 1,000 mls @ 999 mls/hr IV .BOLUS ONE Stop: 04/03/18 23:06 Last Admin: 04/03/18 22:20 Dose: 999 mls/hr Sodium Chloride (Normal Saline) 1,000 mls @ 999 mls/hr IV .BOLUS ONE Stop: 04/04/18 01:14 Last Admin: 04/04/18 00:15 Dose: 999 mls/hr Meclizine HCl (Antivert) 25 mg PO ONETIME ONE Stop: 04/04/18 00:21 Last Admin: 04/04/18 05:30 Dose: 25 mg Meclizine HCl (Antivert) Confirm Administered Dose 25 mg .ROUTE .STK-MED ONE Stop: 04/04/18 05:23 Last Admin: 04/04/18 05:31 Dose: Not Given Ondansetron HCl (Zofran) 4 mg IVPUSH ONETIME ONE Stop: 04/03/18 22:45 Last Admin: 04/03/18 22:47 Dose: 4 mg Promethazine HCl (Phenergan) 25 mg IM ONETIME ONE Stop: 04/03/18 23:52 Last Admin: 04/04/18 00:12 Dose: 25 mg - Exam Quality Assessment: Reports: DVT Prophylaxis (Patient on Eliquis). Denies: Supplemental Oxygen, Central Line/PICC, Urine Catheter, Skin Breakdown, Restraints General: Reports: Alert, Oriented, Cooperative, No Acute Distress HEENT: Reports: Pupils Equal, Pupils Reactive, EOMI, Mucous Membr. Moist/[place], Other (Patient wearing glasses. Moist oral mucosa) Neck: Reports: Supple, Trachea Midline, No JVD, No Thyromegaly. Denies: Lymphadenopathy Lungs: Reports: Clear to Auscultation, Normal Respiratory Effort. Denies: Rub Cardiovascular: Reports: Regular Rate, Regular Rhythm, No Murmurs, Gallops. Denies: Rubs GI/Abdominal Exam: Normal Bowel Sounds, Soft, Non-Tender, No Organomegaly, No Distention, No Abnormal Bruit, No Mass, Other (Obese). No: Guarding (Female) Exam: Deferred Rectal (Female) Exam: Deferred Back Exam: Reports: Normal Inspection, Full Range of Motion. Denies: CVA Tenderness (L), CVA Tenderness (R), Muscle Spasm Extremities: Normal Inspection, Normal Range of Motion, Non-Tender, No Pedal Edema, Normal Capillary Refill, Other (Mild to moderate varicose veins in the lower extremities). No: Vivien's Sign Skin: Reports: Warm, Dry, Intact. Denies: Ecchymosis Neurological: Reports: No New Focal Deficit, Other (No clinical orthostasis) Psy/Mental Status: Reports: Alert, Normal Affect, Normal Mood. Denies: Agitated , Hallucinations, Withdrawal Symptoms
== END 2018-04-05 10:15 | disposition home or self-care (01) ==
LOC: LL.ED 21:44 → UNDOADMOB 23:15 → LL.MS 23:15
PROVIDERS: ADMIT Family Medicine; ATTEND Family Medicine
DX: R11.2 Nausea with vomiting, unspecified (principal); E86.0 Dehydration; I48.2 Chronic atrial fibrillation; R42 Dizziness and giddiness; E78.5 Hyperlipidemia, unspecified; I10 Essential (primary) hypertension; D64.9 Anemia, unspecified; E88.09 Other disorders of plasma-protein metabolism, not elsewhere classified; N20.1 Calculus of ureter; D72.819 Decreased white blood cell count, unspecified; Z79.01 Long term (current) use of anticoagulants; Z79.899 Other long term (current) drug therapy; Z88.1 Allergy status to other antibiotic agents; Z88.8 Allergy status to other drugs, medicaments and biological substances
CPT/HCPCS: 36415; 80053; 81001; 82150; 83690; 85025; 85610; 85730; 96361; 96372; 96374; 99285; A9270-GY; J2405; J2550; J7030; J7120